=== PATIENT | male | born 2000 | race Caucasian/White ===

== ENCOUNTER 2020-12-24 08:39 | Emergency (ER) | payer BC, SELFPAY ==
[2020-12-24 08:50] VITALS: BP 124/60; PULSE 54; RESP 18; TEMP 36.6; O2SAT 98
--- NOTE | 2020-12-24 09:59 | ED.SKABFB ---
HPI - Skin/Abscess/Foreign Bdy General Chief complaint: Skin/Abscess/Foreign Body Stated complaint: Rash on legs and up Time Seen by Provider: 12/24/20 09:39 Source: patient, family and RN notes reviewed Mode of arrival: ambulatory Limitations: no limitations History of Present Illness HPI narrative: Mother and patient presents today complaining of rash the bilateral feet and legs x4 to 5 days. Patient states it itched initially, but no longer does. Patient denies any known source or contacts with any irritants or new products, foods, medications mother states she noticed a rash around patient's waistline, but patient states he did not visualize it in this area. Mother and patient both state rash has significantly improved since onset. They contacted patient's PCP yesterday and was told that patient needed to be seen immediately for evaluation, but they could not get patient in for a visit. MD complaint: rash Related Data Home Medications Medication Instructions Recorded Confirmed lamotrigine 100 mg tablet 100 mg PO DAILY 06/10/20 12/24/20 quetiapine 25 mg tablet 25 mg PO QHS 06/10/20 12/24/20 Allergies Allergy/AdvReac Type Severity Reaction Status Date / Time No Known Allergies Allergy Verified 06/10/20 14:17 Review of Systems Review of Systems: CONSTITUTIONAL: Denies body aches, fever, chills, or sweats. EYES: Denies visual changes, redness, or discharge. ENT: Denies rhinorrhea, congestion, sore throat, or otalgia. CARDIOVASCULAR: Denies chest pain, palpitations, or edema. RESPIRATORY: Denies cough or dyspnea. GASTROINTESTINAL: Denies abdominal pain, nausea, vomiting, or diarrhea. GENITOURINARY: Denies dysuria or hematuria. SKIN: Denies itching, or wounds. + Rash MUSCULOSKELETAL: Denies back pain, joint pain, or myalgia. NEUROLOGIC: Denies headache, numbness, tingling, or weakness. PSYCH: Denies depression or anxiety. [facility] Past Medical History Medical History Alcohol abuse with alcohol-induced disorder Post concussion syndrome Traumatic brain injury Surgical History Surgical History S/P ACL repair Social History Social History Smoking status: Current some day smoker Tobacco type: e-cigarettes/vaping Alcohol intake: current Substance use type: marijuana Comments At time of signature, I have reviewed and agree with nursing past medical, surgical, social and family history unless otherwise noted. Please see nursing chart for further information. There is no relevant family history pertinent to the presenting complaint Exam Narrative: GENERAL: Well-appearing, well-nourished, and in no acute distress. HEAD: Normocephalic, atraumatic. EYES: EOMI. No redness or drainage. Conjunctivae normal. ENT: Mucous membranes pink and moist. NECK: Normal AROM. CHEST: No respiratory distress. HEART: Normal peripheral pulses. EXTREMITIES: Normal range of motion. No edema. SKIN: Warm, dry. Capillary refill normal. Normal skin turgor. Faint pinpoint nonblanchable petechiae to the proximal dorsums of the bilateral feet, as well as the left anterior thigh. No rash noted to the abdomen, waist, back, or chest. Distal sensation intact. Capillary refill normal. Pedal pulses normal. Full range of motion of both legs. NEURO: No focal deficits. Alert and oriented x3. Gait steady. PSYCH: Normal affect. No signs of depression or anxiety. Course Vital Signs Vital signs: Vital Signs Temperature 97.9 F 12/24/20 08:50 Pulse Rate 54 L 12/24/20 08:50 Respiratory Rate 18 12/24/20 08:50 Blood Pressure 124/60 12/24/20 08:50 Pulse Oximetry 98 12/24/20 08:50 Temperature 97.9 F 12/24/20 08:50 Pulse Rate 54 L 12/24/20 08:50 Respiratory Rate 18 12/24/20 08:50 Blood Pressure 124/60 12/24/20 08:50 Pulse Oximetry
== END 2020-12-24 10:07 | disposition home or self-care (01) ==
PROVIDERS: Emergency Provider Nurse Practitioner; PCP Family Medicine
DX: R23.3 Spontaneous ecchymoses (principal); F17.290 Nicotine dependence, other tobacco product, uncomplicated
CPT/HCPCS: 99211; G0463

== ENCOUNTER 2024-04-12 08:08 | Outpatient (CLI) | payer OTHER, SELFPAY ==
--- NOTE | ~2024-04-12 | US_ITS ---
EXAMINATION: US abdomen complete DATE: 04/12/2024 08:24 INDICATION: Abnormal levels of other serum enzymes. TECHNIQUE: Multiple grayscale and Doppler ultrasound images of the abdomen were obtained. COMPARISON: None FINDINGS: The visualized portion of the head of the pancreas is normal. The liver is normal without f ocal lesion. There is normal flow in main portal vein. The gallbladder is normal size. No gallstones or gallbladder wall thickening. There is no sonographic Foley's sign. The common duct is normal and measures 3 mm. Abdominal aorta is normal in caliber. Inferior vena cava is normal. The kidneys are no rmal in size. The spleen is normal in size. IMPRESSION: 1. Normal complete abdomen ultrasound. Reviewed, dictated and finalized at location [facility]
== END 2024-04-12 08:09 | disposition home or self-care (01) ==
LOC: GOSHIMG 08:08
PROVIDERS: PCP Family Medicine; Visit Provider Family Medicine
DX: R74.8 Abnormal levels of other serum enzymes (principal)
CPT/HCPCS: 76700